=== PATIENT | male | born 1975 | race Caucasian/White ===

== ENCOUNTER 2017-03-31 16:52 | Inpatient (IN) ==
--- NOTE | 2017-03-31 18:24 | Emergency Department Note ---
Disposition Clinical Impression: Multiple sclerosis exacerbation Disposition: Admitted As Inpatient Condition: Fair Referrals: Sussy Cruz INFECTIOUS DISEASE PHYSICIAN [Primary Care Provider] - Forms: Work/School Release, ED Satisfaction Letter Time of Disposition: 20:24 Neuro HPI - General Chief Complaint: ED General Medical Stated Complaint: difficulty walking, hx MS Time Seen by Provider: 03/31/17 18:10 Source: patient Mode of arrival: ambulatory Limitations: no limitations Nursing Notes Reviewed: Yes Vital Signs Reviewed: Yes - History of Present Illness HPI Narrative: 41-year-old with history of MS who is not taking his medications because he cannot afford them comes in with a one-week history of difficulty walking he has incoordination of his lower extremities is using a cane at this point in time. States symptoms gotten progressively worse. Symptom Onset Unknown: No Timing confirmed by: other Location: left leg, right leg, ataxia Severity: moderate Quality: weakness, other (Incoordinated lower extremity movement) Symptoms Improving: No Improves with: none Worsens with: none Context: gradual onset On Anticoagulants: No Associated symptoms: Reports: denies other symptoms - Related Data Home Medications: Home Medications Medication Instructions Recorded Confirmed Cyanocobalamin (Vitamin B-12) 1,000 mcg PO DAILY 05/04/15 05/04/15 [Vitamin B12] Ibuprofen [Motrin] 400 mg PO Q6HR PRN 05/04/15 05/04/15 Krill Oil/Macon-3/Dha/Epa [Macon-3 1 each PO DAILY 05/04/15 05/04/15 Krill Oil Softgel] Previous Rx's Medication Instructions Recorded Amoxicillin/Clavulanate [Augmentin] 875 mg PO BIDWM #20 tablet 05/06/15 Hydrocodone/Acetaminophen [[place] 1 tab PO TID PRN #15 tab 05/06/15 5-325 Tablet] Allergies/Adverse Reactions: Allergies Allergy/AdvReac Type Severity Reaction Status Date / Time Anesthetics - Eunice Type- Allergy See Verified 05/04/15 10:24 Parabens Comments [Anesthetics - Eunice Type] IVP Dye Allergy Anaphylaxis Uncoded 05/04/15 10:23 All systems ED: reviewed and negative except as stated. Constitutional: Denies: fever, chills, weakness, weight change Eyes: Denies: eye pain, eye discharge, vision change ENT ED: Denies: ear pain, throat pain, dental pain, hearing loss, epistaxis, congestion, dysphagia Cardiovascular: Denies: chest pain, palpitations, dyspnea on exertion, edema, syncope Respiratory: Denies: cough, dyspnea, wheezes, hemoptysis, stridor Gastrointestinal: Denies: abdominal pain, nausea, vomiting, diarrhea, constipation, hematemesis, melena, hematochezia Genitourinary: Denies: urgency, dysuria, frequency, hematuria Musculoskeletal: Denies: back pain, neck pain, arthralgia, myalgia Integumentary: Denies: rash, abrasion, lesions Neurological: Reports: weakness, abnormal gait. Denies: headache, numbness, paresthesias, confusion, vertigo Psychiatric: Denies: anxiety, depression, suicidal thoughts, homicidal thoughts , auditory hallucinations, visual hallucinations Endocrine: Denies: fatigue Hematological/Lymphatic: Denies: easy bleeding, easy bruising Allergic/Immunologic: Denies: facial swelling, urticaria Past Medical History - Past Medical History Medical history: Reports: hyperlipidemia, other Surgical history: Reports: other (wisdom teeth) Psychiatric history: Reports: no psych history - Social History Smoking Status: Never smoker Smokeless Tobacco Status: No Alcohol use: Reports: occasionally Drug use: Reports: none Physical Exam - General Limitations: no limitations General appearance: alert, in no apparent distress - Head Head exam: atraumatic, normocephalic, normal inspection - Eye Eye exam: Present: normal appearance, PERRL, EOMI - ENT ENT exam: normal exam, normal oropharynx, mucous membranes moist - Neck Neck exam: Present: normal inspection, full ROM, trachea midline - Chest Chest inspection: Present: normal inspection, symmetric chest wall rise - Respiratory Respiratory exam: Present: normal lung sounds bilaterally - Cardiovascular Cardiovascular exam: Present: regular rate, normal rhythm, normal heart sounds - Abdominal Exam Abdominal exam: Present: soft, Non-Tender. Absent: tenderness, distention, guarding, rebound, rigidity - Extremities Exam Extremities exam: Present: normal inspection, full ROM. Absent: tenderness, pedal edema - Expanded Lower Extremity Exam Neurovascular/Tendon exam: Absent: motor deficit, sensory deficit, tendon deficit Gait: other - Back Exam Back exam: Present: normal inspection - Neurological Exam Neurological exam: Present: alert, other (Some weakness of the lower extremities ) - Psychiatric Psychiatric exam: Present: normal affect, normal mood - Skin Skin exam: Present: warm, dry, intact, normal color Course - Consultations Consultation #1: Discussed with Dr. Vergara neurology who would like the patient to receive 1 g of Solu-Medrol now admitted to the hospitalist. Time: 20:23 Vital Signs Temperature 98.3 F 03/31/17 16:53 Pulse Rate 80 03/31/17 16:53 Respiratory Rate 16 03/31/17 16:53 Blood Pressure 119/82 03/31/17 16:53 O2 Sat by Pulse Oximetry 97 03/31/17 16:53 Temperature 98.3 F 03/31/17 16:53 Pulse Rate 80 03/31/17 16:53 Respiratory Rate 16 03/31/17 16:53 Blood Pressure 119/82 03/31/17 16:53 O2 Sat by Pulse Oximetry 97 03/31/17 16:53 Oxygen Delivery Oxygen Delivery Room Air Neuro Symptoms/Deficit - Lab Data Result diagrams: 03/31/17 18:37 03/31/17 18:37 Lab Results 03/31/17 03/31/17 03/31/17 Range/Units 18:37 18:37 18:37 WBC 9.5 (4.3-11.1) K/mcL RBC 5.08 (4.19-5.50) M/mcL Hgb 14.6 (12.9-16.9) g/dL Hct 43.6 (37.5-50.1) % MCV 85.8 (83.0-100.0) fL MCH 28.7 (28.0-33.3) pg MCHC 33.5 (31.6-35.5) g/dL RDW 13.1 (11.5-14.5) % Plt Count 271 (140-400) K/mcL MPV 10.5 (9.4-12.4) fL Immature Gran % 0.4 (0-4) % Seg Neutrophils % 71.6 % Lymphocytes % 19.7 % Monocytes % 5.5 % Eosinophils % 2.4 % Basophils % 0.4 % Neutrophils # 6.8 (1.6-8.9) K/mcL Lymphocytes # 1.9 (0.6-4.6) K/mcL Monocytes # 0.5 (0.0-1.3) K/mcL Eosinophils # 0.2 (0.0-0.6) K/mcL Basophils # 0.0 (0.0-0.2) K/mcL PT 11.5 (9.4-12.1) Seconds INR 1.1 APTT 27.7 (26.0-36.0) Seconds Sodium 139 (136-145) mEq/L Potassium 3.8 (3.5-4.5) mEq/L Chloride 106 (98-109) mEq/L Carbon Dioxide 27 (19-29) mEq/L BUN 18 (8-26) mg/dL Creatinine 1.07 (0.72-1.25) mg/dL Est GFR ( Amer) > 60 (> 60) Est GFR (Non-Af Amer) > 60 (> 60) BUN/Creatinine Ratio 17 (6-26) Glucose 99 (70-99) mg/dL Calculated Osmolality 290 (280-300) Calcium 9.5 (8.6-10.8) mg/dL Troponin I (0-0.03) ng/mL 03/31/17 Range/Units 18:37 WBC (4.3-11.1) K/mcL RBC (4.19-5.50) M/mcL Hgb (12.9-16.9) g/dL Hct (37.5-50.1) % MCV (83.0-100.0) fL MCH (28.0-33.3) pg MCHC (31.6-35.5) g/dL RDW (11.5-14.5) % Plt Count (140-400) K/mcL MPV (9.4-12.4) fL Immature Gran % (0-4) % Seg Neutrophils % % Lymphocytes % % Monocytes % % Eosinophils % % Basophils % % Neutrophils # (1.6-8.9) K/mcL Lymphocytes # (0.6-4.6) K/mcL Monocytes # (0.0-1.3) K/mcL Eosinophils # (0.0-0.6) K/mcL Basophils # (0.0-0.2) K/mcL PT (9.4-12.1) Seconds INR APTT (26.0-36.0) Seconds Sodium (136-145) mEq/L Potassium (3.5-4.5) mEq/L Chloride (98-109) mEq/L Carbon Dioxide (19-29) mEq/L BUN (8-26) mg/dL Creatinine (0.72-1.25) mg/dL Est GFR ( Amer) (> 60) Est GFR (Non-Af Amer) (> 60) BUN/Creatinine Ratio (6-26) Glucose (70-99) mg/dL Calculated Osmolality (280-300) Calcium (8.6-10.8) mg/dL Troponin I 0.00 (0-0.03) ng/mL TPA Checklist - LKW: 3-4.5 hrs Add. Warnings/Precautions Patient/family understanding: The patient/family members have been counseled and understood the risk, benefit , and alternatives of treatment. Isabela - Isabela Background: Presenting Complaint (Patient with significant increase in coordination is lower extremities with difficulty walking has a history of MS) Assessment: Exam Concerns (Has weakness of the lower extremities and increase in coordination of the lower extremities concerning for MS exacerbation) Recommendation: Recommendation based on pending studies, treatments, or consults S.Pedrito Report Given to: Dr. Eduarda Mar Repor Time: 20:13 (MRI pending)
[2017-03-31 19:03] LABS: Basophils % 0.4 %; Eosinophils # 0.2 K/mcL (0.0-0.6); Eosinophils % 2.4 %; Hematocrit 43.6 % (37.5-50.1); Hemoglobin 14.6 g/dL (12.9-16.9); INR 1.1; Immature Granulocytes % 0.4 % (0-4); Lymphocytes # 1.9 K/mcL (0.6-4.6); Lymphocytes % 19.7 %; Mean Corpuscular HGB Conc 33.5 g/dL (31.6-35.5); Mean Corpuscular Hemoglobin 28.7 pg (28.0-33.3); Mean Corpuscular Volume 85.8 fL (83.0-100.0); Mean Platelet Volume 10.5 fL (9.4-12.4); Monocytes # 0.5 K/mcL (0.0-1.3); Monocytes % 5.5 %; Neutrophils # 6.8 K/mcL (1.6-8.9); Platelet Count 271 K/mcL (140-400); Prothrombin Time 11.5 Seconds (9.4-12.1); Red Blood Count 5.08 M/mcL (4.19-5.50); Red Cell Distribution Width 13.1 % (11.5-14.5); Segmented Neutrophils % 71.6 %
[2017-03-31 19:06] LABS: Activated Partial Thrombo Time 27.7 Seconds (26.0-36.0)
[2017-03-31 19:09] LABS: BUN/Creatinine Ratio 17 (6-26); Blood Urea Nitrogen 18 mg/dL (8-26); Calcium 9.5 mg/dL (8.6-10.8); Carbon Dioxide 27 mEq/L (19-29); Chloride 106 mEq/L (98-109); Glucose 99 mg/dL (70-99); Osmolality,Calculated 290 (280-300); Potassium 3.8 mEq/L (3.5-4.5); Sodium 139 mEq/L (136-145); eGFR For African Americans > 60 (> 60); eGFR For Non-African Americans > 60 (> 60)
[2017-03-31 21:41] LABS: Bilirubin,Urine Negative (Negative); Blood,Urine Negative (Negative); Clarity,Urine Clear (Clear); Color,Urine Yellow (Yellow); Glucose,Urine (UA) Normal (Normal); Ketones,Urine Negative (Negative); Leukocyte Esterase,Urine Negative (Negative); Nitrite,Urine Negative (Negative); Protein,Urine Negative (Neg-Trace); Specific Gravity,Urine 1.028 (1.010-1.025); Urobilinogen,Urine Normal (Normal)
[2017-03-31] MEDS ORDERED: methylPREDNISolone 125 MG/2 ML VIAL IVP ONE (21:46)
--- NOTE | 2017-04-01 00:19 | Emergency Department Note ---
Disposition Clinical Impression: Multiple sclerosis exacerbation Disposition: Admitted As Inpatient Condition: Fair General Adult HPI - General Chief complaint: ED General Medical Stated complaint: difficulty walking, hx MS Time Seen by Provider: 03/31/17 18:10 Source: patient Mode of arrival: ambulatory Limitations: no limitations Nursing Notes Reviewed: Yes Vital Signs Reviewed: Yes - History of Present Illness Pain Scale: 3 - Related Data Home Medications Medication Instructions Recorded Confirmed FLUoxetine HCl [PROzac] 10 mg PO DAILY 03/31/17 03/31/17 Hydrocodone/Acetaminophen [[place] 1 tab PO Q6H PRN 03/31/17 03/31/17 5-325 Tablet] Ropinirole HCl [Requip] 2 mg PO HS 03/31/17 03/31/17 Allergies Allergy/AdvReac Type Severity Reaction Status Date / Time Anesthetics - Eunice Type- Allergy See Verified 05/04/15 10:24 Parabens Comments [Anesthetics - Euniec Type] IVP Dye Allergy Anaphylaxis Uncoded 05/04/15 10:23 Constitutional: Denies: fever, chills, weakness, weight change Eyes: Denies: eye pain, eye discharge, vision change ENT ED: Denies: ear pain, throat pain, dental pain, hearing loss, epistaxis, congestion, dysphagia Cardiovascular: Denies: chest pain, palpitations, dyspnea on exertion, edema, syncope Respiratory: Denies: cough, dyspnea, wheezes, hemoptysis, stridor Gastrointestinal: Denies: abdominal pain, nausea, vomiting, diarrhea, constipation, hematemesis, melena, hematochezia Genitourinary: Denies: urgency, dysuria, frequency, hematuria Musculoskeletal: Denies: back pain, neck pain, arthralgia, myalgia Integumentary: Denies: rash, abrasion, lesions Neurological: Reports: weakness, abnormal gait. Denies: headache, numbness, paresthesias, confusion, vertigo Psychiatric: Denies: anxiety, depression, suicidal thoughts, homicidal thoughts , auditory hallucinations, visual hallucinations Endocrine: Denies: fatigue Hematological/Lymphatic: Denies: easy bleeding, easy bruising Allergic/Immunologic: Denies: facial swelling, urticaria Past Medical History - Past Medical History Medical history: Reports: hyperlipidemia, other Surgical history: Reports: other (wisdom teeth) Psychiatric history: Reports: no psych history - Social History Smoking Status: Never smoker Smokeless Tobacco Status: No Alcohol use: Reports: occasionally Drug use: Reports: none Physical Exam - General Limitations: no limitations General appearance: alert, in no apparent distress Course Vital Signs Temperature 98.3 F 03/31/17 16:53 Pulse Rate 80 03/31/17 16:53 Respiratory Rate 16 03/31/17 16:53 Blood Pressure 119/82 03/31/17 16:53 O2 Sat by Pulse Oximetry 97 03/31/17 16:53 Temperature 98.3 F 03/31/17 16:53 Pulse Rate 80 03/31/17 16:53 Respiratory Rate 14 03/31/17 23:59 Blood Pressure 115/87 03/31/17 23:59 O2 Sat by Pulse Oximetry 97 03/31/17 16:53 Oxygen Delivery Oxygen Delivery Room Air Medical Decision Making - MDM Narrative Medical decision making narrative: Patient received in sign out at 9 PM pending MRI, x-ray of the chest, urinalysis , reevaluation and disposition. Dr. Rodriguez spoke with the neurologist who recommended 1 g of Solu-Medrol for treatment of MS flare. Patient felt comfortable with this plan. He will be admitted to the hospital for further care and evaluation of MS flare. - Lab Data Result diagrams: 03/31/17 18:37 03/31/17 18:37 Lab Results 03/31/17 03/31/17 03/31/17 Range/Units 18:37 18:37 18:37 WBC 9.5 (4.3-11.1) K/mcL RBC 5.08 (4.19-5.50) M/mcL Hgb 14.6 (12.9-16.9) g/dL Hct 43.6 (37.5-50.1) % MCV 85.8 (83.0-100.0) fL MCH 28.7 (28.0-33.3) pg MCHC 33.5 (31.6-35.5) g/dL RDW 13.1 (11.5-14.5) % Plt Count 271 (140-400) K/mcL MPV 10.5 (9.4-12.4) fL Immature Gran % 0.4 (0-4) % Seg Neutrophils % 71.6 % Lymphocytes % 19.7 % Monocytes % 5.5 % Eosinophils % 2.4 % Basophils % 0.4 % Neutrophils # 6.8 (1.6-8.9) K/mcL Lymphocytes # 1.9 (0.6-4.6) K/mcL Monocytes # 0.5 (0.0-1.3) K/mcL Eosinophils # 0.2 (0.0-0.6) K/mcL Basophils # 0.0 (0.0-0.2) K/mcL PT 11.5 (9.4-12.1) Seconds INR 1.1 APTT 27.7 (26.0-36.0) Seconds Sodium 139 (136-145) mEq/L Potassium 3.8 (3.5-4.5) mEq/L Chloride 106 (98-109) mEq/L Carbon Dioxide 27 (19-29) mEq/L BUN 18 (8-26) mg/dL Creatinine 1.07 (0.72-1.25) mg/dL Est GFR ( Amer) > 60 (> 60) Est GFR (Non-Af Amer) > 60 (> 60) BUN/Creatinine Ratio 17 (6-26) Glucose 99 (70-99) mg/dL Calculated Osmolality 290 (280-300) Calcium 9.5 (8.6-10.8) mg/dL Troponin I (0-0.03) ng/mL Urine Color (Yellow) Urine Clarity (Clear) Urine pH (5.0-8.0) pH Units Ur Specific [place] (1.010-1.025) Urine Protein (Neg-Trace) mg/dL Urine Glucose (UA) (Normal) mg/dL Urine Ketones (Negative) mg/dL Urine Blood (Negative) Urine Nitrite (Negative) Urine Bilirubin (Negative) Urine Urobilinogen (Normal) mg/dL Ur Leukocyte Esterase (Negative) Ur Culture Indicated? (NO) 03/31/17 03/31/17 Range/Units 18:37 21:33 WBC (4.3-11.1) K/mcL RBC (4.19-5.50) M/mcL Hgb (12.9-16.9) g/dL Hct (37.5-50.1) % MCV (83.0-100.0) fL MCH (28.0-33.3) pg MCHC (31.6-35.5) g/dL RDW (11.5-14.5) % Plt Count (140-400) K/mcL MPV (9.4-12.4) fL Immature Gran % (0-4) % Seg Neutrophils % % Lymphocytes % % Monocytes % % Eosinophils % % Basophils % % Neutrophils # (1.6-8.9) K/mcL Lymphocytes # (0.6-4.6) K/mcL Monocytes # (0.0-1.3) K/mcL Eosinophils # (0.0-0.6) K/mcL Basophils # (0.0-0.2) K/mcL PT (9.4-12.1) Seconds INR APTT (26.0-36.0) Seconds Sodium (136-145) mEq/L Potassium (3.5-4.5) mEq/L Chloride (98-109) mEq/L Carbon Dioxide (19-29) mEq/L BUN (8-26) mg/dL Creatinine (0.72-1.25) mg/dL Est GFR ( Amer) (> 60) Est GFR (Non-Af Amer) (> 60) BUN/Creatinine Ratio (6-26) Glucose (70-99) mg/dL Calculated Osmolality (280-300) Calcium (8.6-10.8) mg/dL Troponin I 0.00 (0-0.03) ng/mL Urine Color Yellow (Yellow) Urine Clarity Clear (Clear) Urine pH 6.0 (5.0-8.0) pH Units Ur Specific [place] 1.028 H (1.010-1.025) Urine Protein Negative (Neg-Trace) mg/dL Urine Glucose (UA) Normal (Normal) mg/dL Urine Ketones Negative (Negative) mg/dL Urine Blood Negative (Negative) Urine Nitrite Negative (Negative) Urine Bilirubin Negative (Negative) Urine Urobilinogen Normal (Normal) mg/dL Ur Leukocyte Esterase Negative (Negative) Ur Culture Indicated? NO (NO)
[2017-04-01] MEDS ORDERED: Acetaminophen 325 MG TABLET PO PRN (01:38)
--- NOTE | 2017-04-01 01:49 | Internal Med History&Physical ---
Date of Encounter: 04/01/17 Time of Encounter: 01:48 Assessment and Plan (1) Exacerbation of multiple sclerosis Current visit: Yes Status: Suspected patient with a hx of MS now comes in with worsening neurological symptoms, diagnostic imaging concerning for signal enhancement for a flare, neuropsychology medical consultant neurologist was consulted in the ER who recommended 1,000mg stat of solumedrol, will get them to weigh in, will continue high dose steroid for 3 days total pending neurology review (2) Restless leg syndrome Current visit: Yes Status: Chronic will continue home medication (3) Depression Current visit: Yes Status: Chronic will continue home medication Qualifiers: Depression Type: major depressive disorder Major depression recurrence: recurrent Active/Remission status: in full remission Qualified Code(s): F33.42 - Major depressive disorder, recurrent, in full remission Internal Medicine - H&P: HPI Chief complaint: difficulty walking Admitted From: Emergency Dept Plans for Post Hospital Care: Home History of present illness: Mr. Mina is a 41 year old male with a history of multiple sclerosis diagnosis since 2009/restless leg syndrome who presented to the ER with ambulatory difficulty. He reports that for the past couple of days he had had difficulty walking, he self describes it a "wobbly" and has had to use a cane more frequently. He denies any recent illness or change in medications. No new focal deficits, falls, tingling or numbness. His symptoms has been progressively worsening so he came to the ER for further evaluation. In the ER he had C-spine MRI and Brain MRI but was reported as "slight interval increase in the multifocal high signal in the spinal cord" and "slightly increased number of white matter lesions" compared to the prior exam in 04/2015 respectively. The on- call neurologist was consulted who recommended high dose steroids and admission for further management. Past Med Surg Social Fam HX - Past Medical History Source: patient, old records reviewed Medical history: hyperlipidemia, other (RLS, MS) Psychiatric history: depression - Past Surgical History Surgical History: other ([place] teeth extraction) - Social History Smoking Status: Never smoker Smokeless Tobacco Status: No Alcohol use: occasionally Drug use: none - Family History Mother Living Status: Cause of : breast ca. Hx Family Cancer: Yes (breast cancer) Internal Medicine - H&P: Meds FLUoxetine HCl [PROzac] 10 mg PO DAILY 03/31/17 [History] Hydrocodone/Acetaminophen [[place] 5-325 Tablet] 1 tab PO Q6H PRN 03/31/17 [ History] Ropinirole HCl [Requip] 2 mg PO HS 03/31/17 [History] Allergies Anesthetics - Eunice Type- Parabens [Anesthetics - Eunice Type] Allergy (Verified 05/04/15 10:24) See Comments Heart rate dropped IVP Dye Allergy (Uncoded 05/04/15 10:23) Anaphylaxis Hives All Systems PM: A 10-system review of systems was performed and is negative for pertinent findings except as documented above in the HPI. - Constitutional Vitals: Temp Pulse Resp BP Pulse Ox 98.1 F 51 17 130/90 94 04/01/17 00:49 04/01/17 00:49 04/01/17 00:49 04/01/17 00:49 04/01/17 00:49 GENERAL: Adult male, lying in bed, Alert, not in acute distress, seems to have lapses in memory HEENT: NC/AT, EOMI, PERRLA, anicteric sclera, normal conjunctiva, supple, clear nares, moist mucous membranes, RESP: Lungs are clear to auscultation bilaterally, good AE bilaterally, No crackles or wheeze CARDIO: Normal hearts sounds; S1 and 2, RRR with no murmurs, no JVD, no ankle edema GI: Obese abdomen, Soft, full, no tenderness, no organomegaly felt, normal bowel sounds heard MUSCULOSKELETAL: grossly normal movements bilaterally, no deformities noted, no calf tenderness NEUROLOGIC: CN 2-12 intact grossly. No gross motor/sensory deficit appreciated, PSYCHIATRY: AAO x 3. Mood is fair, SKIN: no skin rash or ulcers noted Internal Med - H&P Results - Labs CBC & Chem 7: 03/31/17 18:37 04/01/17 02:22 - Diagnostic Studies MRI - head Status: image reviewed by me
[2017-04-01] MEDS ORDERED: Naloxone 0.4 MG/ML INJ IVP PRN (01:57)
[2017-04-01] MEDS: *HR* HYDROcodone/Acet 5/325 mg TABLET PO PRN ×4 (02:08→23:29)
[2017-04-01] MEDS: rOPINIRole 1 MG TABLET PO SCH ×2 (02:08→21:01)
[2017-04-01 03:29] LABS: BUN/Creatinine Ratio 19 (6-26); Blood Urea Nitrogen 17 mg/dL (8-26); Calcium 9.7 mg/dL (8.6-10.8); Carbon Dioxide 18 mEq/L (19-29); Glucose 131 mg/dL (70-99); Magnesium 2.1 mg/dL (1.6-2.6); Phosphorous 1.9 mg/dL (2.3-4.7); eGFR For African Americans > 60 (> 60); eGFR For Non-African Americans > 60 (> 60)
[2017-04-01 03:36] LABS: Chloride 108 mEq/L (98-109); Osmolality,Calculated 289 (280-300); Sodium 138 mEq/L (136-145)
[2017-04-01 03:40] LABS: Potassium 4.6 mEq/L (3.5-4.5)
--- NOTE | 2017-04-01 09:51 | Neurology - Consult Note ---
Date of Encounter: 04/01/17 Time of Encounter: 09:45 Assessment and Plan (1) Multiple sclerosis exacerbation Current Visit: Yes Status: Acute 41-year old man with multiple sclerosis exacerbation, based on clinical and imaging findings, although contrast studies were not done. Has difficulties with being on medications due to affordability. IV prednisone/solumedrol, 1g daily x 3 or 5 days, depending on improvement. Ca, Vit D, PPI prophylaxis during steroid treatment. Outpatient follow-up with Dr. Cabrera in 1 week. History of Present Illness Chief complaint: Incoordination while walking HPI: Mr. Mina is a 41 year old male with prior diagnosis of Multiple Sclerosis ( diagnosed in 2004), tried on several medications, (none of which really worked and/or that he could not afford the medication) who started having difficulties with walking in the last few days. He did not have any infections during this time. He was in his usual state of health and was working in the last few days. But yesterday, the incoordination was so much that he decided to come to the hospital. no bowel/bladder issues. He has anaphylactic reaction to contrast dyes, and so MRI was not done with contrast, which showed new lesions in the brain and cervical spine. No other change in medications. No falls. No difficulty eating or swallowing or with speech. He states that he has no specific weakness, but has difficulty coordinating the movements. He is being followed by Dr. Cabrera in the outpatient setting. Last time when he had worsening of his function, he was given IV steroids for three days and was sent home with improvement. Past Med Surg Social Fam HX - Past Medical History Medical history: hyperlipidemia, other (RLS, MS) Psychiatric history: depression - Past Surgical History Surgical History: other ([place] teeth extraction) - Social History Smoking Status: Never smoker Smokeless Tobacco Status: No Alcohol use: occasionally Drug use: none - Family History Mother Living Status: Cause of : breast ca. Hx Family Cancer: Yes (breast cancer) Medications and Allergies FLUoxetine HCl [PROzac] 10 mg PO DAILY 03/31/17 [History] Hydrocodone/Acetaminophen [[place] 5-325 Tablet] 1 tab PO Q6H PRN 03/31/17 [ History] Ropinirole HCl [Requip] 2 mg PO HS 03/31/17 [History] Allergies Anesthetics - Eunice Type- Parabens [Anesthetics - Eunice Type] Allergy (Verified 05/04/15 10:24) See Comments Heart rate dropped IVP Dye Allergy (Uncoded 05/04/15 10:23) Anaphylaxis Hives All Systems: A 10-system review of systems was performed and is negative for pertinent findings except as documented above in the HPI. - Constitutional Constitutional ROS IM: as per HPI - Nose, Mouth, Throat Nose, mouth and throat: as per HPI - Cardiovascular Cardiovascular ROS IM: as per HPI - Respiratory Respiratory IM: as per HPI - Gastrointestinal Gastrointestinal: as per HPI - Genitourinary Genitourinary ROS: as per HPI - Musculoskeletal Musculoskeletal ROS IM: as per HPI - Integumentary Integumentary IM: as per HPI - Neurological Neurological ROS: as per HPI - Psychiatric Psychiatric general PM: as per HPI - Endocrine Endocrine IM: as per HPI - Hematologic/Lymphatic Hematologic/Lymphatic pediatric: as per HPI - Allergic/Immunologic Allergic/Immunologic ROS PM: as per HPI Physical Examination - Vital Signs Vital Signs: Initial Vital Signs Temp Pulse Resp BP Pulse Ox 98.3 F 80 16 119/82 97 03/31/17 16:53 03/31/17 16:53 03/31/17 16:53 03/31/17 16:53 03/31/17 16:53 Vital Signs - 24 hr 03/31/17 16:53 03/31/17 23:59 04/01/17 00:49 Temperature 98.3 F 98.1 F Pulse Rate 80 51 Respiratory Rate 16 14 17 Blood Pressure 119/82 115/87 130/90 O2 Sat by Pulse Oximetry 97 94 04/01/17 04:15 04/01/17 06:55 Temperature 98.0 F 98 F Pulse Rate 50 56 Respiratory Rate 16 18 Blood Pressure 131/88 127/86 O2 Sat by Pulse Oximetry 95 96 - Constitutional General appearance: comfortable - Neurologic Sensorimotor examination: intact Detailed motor examination: full strength in all major muscle groups Motor examination - right side: 01/13: deltoids, biceps, triceps, wrist flexion, wrist extension, wheel alignment mechanic, hip flexors, tibialis Anterior, quadriceps, toe extension (EHL), plantarflexion Motor examination - left side: 01/13: deltoids, biceps, triceps, wrist flexion, wrist extension, hip flexors, wheel alignment mechanic, quadriceps, tibialis Anterior, toe extension (EHL), plantarflexion Detailed sensory examination: intact Reflexes: Biceps: 3+, Triceps: 3+, Brachioradialis: 3+, Patella: 3+, Achilles: 3 + (Positive Babinski bilaterally) Mental Status Examination: awake, alert, oriented to person, oriented to place, oriented to time, follows commands appropriately, answers questions appropriately, no agnosia, no aphasia, no aproxia, lucid Cranial nerve examination: PERRL, EOMI, visual rosas intact, corneal reflexes brisk symmetrically, sensory to face intact, mastication intact, no facial asymmetry is present, no dysarthria, hearing is intact symmetrically, soft palate elevates bilaterally upon phonation, gag reflex intact, flexes SCM and trapezius muscles symmetrically with full power, tongue protrudes midline, no atrophy or facial fasiculations present Cerebellar examination: no gait ataxia (Has gait ataxia and [id number] ataxia.) Results - Laboratory Findings CBC and BMP: 03/31/17 18:37 04/01/17 02:22 Abnormal lab findings: Abnormal lab results Potassium 4.6 mEq/L (3.5-4.5) H 04/01/17 02:22 Carbon Dioxide 18 mEq/L (19-29) L 04/01/17 02:22 Glucose 131 mg/dL (70-99) H 04/01/17 02:22 Phosphorus 1.9 mg/dL (2.3-4.7) L 04/01/17 02:22 Ur Specific Ferguson 1.028 (1.010-1.025) H 03/31/17 21:33 Lab Results 03/31/17 03/31/17 03/31/17 Range/Units 18:37 18:37 18:37 WBC 9.5 (4.3-11.1) K/mcL RBC 5.08 (4.19-5.50) M/mcL Hgb 14.6 (12.9-16.9) g/dL Hct 43.6 (37.5-50.1) % MCV 85.8 (83.0-100.0) fL MCH 28.7 (28.0-33.3) pg MCHC 33.5 (31.6-35.5) g/dL RDW 13.1 (11.5-14.5) % Plt Count 271 (140-400) K/mcL MPV 10.5 (9.4-12.4) fL Immature Gran % 0.4 (0-4) % Seg Neutrophils % 71.6 % Lymphocytes % 19.7 % Monocytes % 5.5 % Eosinophils % 2.4 % Basophils % 0.4 % Neutrophils # 6.8 (1.6-8.9) K/mcL Lymphocytes # 1.9 (0.6-4.6) K/mcL Monocytes # 0.5 (0.0-1.3) K/mcL Eosinophils # 0.2 (0.0-0.6) K/mcL Basophils # 0.0 (0.0-0.2) K/mcL PT 11.5 (9.4-12.1) Seconds INR 1.1 APTT 27.7 (26.0-36.0) Seconds Sodium 139 (136-145) mEq/L Potassium 3.8 (3.5-4.5) mEq/L Chloride 106 (98-109) mEq/L Carbon Dioxide 27 (19-29) mEq/L BUN 18 (8-26) mg/dL Creatinine 1.07 (0.72-1.25) mg/dL Est GFR ( Amer) > 60 (> 60) Est GFR (Non-Af Amer) > 60 (> 60) BUN/Creatinine Ratio 17 (6-26) Glucose 99 (70-99) mg/dL Calculated Osmolality 290 (280-300) Calcium 9.5 (8.6-10.8) mg/dL Phosphorus (2.3-4.7) mg/dL Magnesium (1.6-2.6) mg/dL Troponin I (0-0.03) ng/mL Urine Color (Yellow) Urine Clarity (Clear) Urine pH (5.0-8.0) pH Units Ur Specific Ferguson (1.010-1.025) Urine Protein (Neg-Trace) mg/dL Urine Glucose (UA) (Normal) mg/dL Urine Ketones (Negative) mg/dL Urine Blood (Negative) Urine Nitrite (Negative) Urine Bilirubin (Negative) Urine Urobilinogen (Normal) mg/dL Ur Leukocyte Esterase (Negative) Ur Culture Indicated? (NO) 03/31/17 03/31/17 04/01/17 Range/Units 18:37 21:33 02:22 WBC (4.3-11.1) K/mcL RBC (4.19-5.50) M/mcL Hgb (12.9-16.9) g/dL Hct (37.5-50.1) % MCV (83.0-100.0) fL MCH (28.0-33.3) pg MCHC (31.6-35.5) g/dL RDW (11.5-14.5) % Plt Count (140-400) K/mcL MPV (9.4-12.4) fL Immature Gran % (0-4) % Seg Neutrophils % % Lymphocytes % % Monocytes % % Eosinophils % % Basophils % % Neutrophils # (1.6-8.9) K/mcL Lymphocytes # (0.6-4.6) K/mcL Monocytes # (0.0-1.3) K/mcL Eosinophils # (0.0-0.6) K/mcL Basophils # (0.0-0.2) K/mcL PT (9.4-12.1) Seconds INR APTT (26.0-36.0) Seconds Sodium 138 (136-145) mEq/L Potassium 4.6 H (3.5-4.5) mEq/L Chloride 108 (98-109) mEq/L Carbon Dioxide 18 L (19-29) mEq/L BUN 17 (8-26) mg/dL Creatinine 0.90 (0.72-1.25) mg/dL Est GFR ( Amer) > 60 (> 60) Est GFR (Non-Af Amer) > 60 (> 60) BUN/Creatinine Ratio 19 (6-26) Glucose 131 H (70-99) mg/dL Calculated Osmolality 289 (280-300) Calcium 9.7 (8.6-10.8) mg/dL Phosphorus 1.9 L (2.3-4.7) mg/dL Magnesium 2.1 (1.6-2.6) mg/dL Troponin I 0.00 (0-0.03) ng/mL Urine Color Yellow (Yellow) Urine Clarity Clear (Clear) Urine pH 6.0 (5.0-8.0) pH Units Ur Specific Ferguson 1.028 H (1.010-1.025) Urine Protein Negative (Neg-Trace) mg/dL Urine Glucose (UA) Normal (Normal) mg/dL Urine Ketones Negative (Negative) mg/dL Urine Blood Negative (Negative) Urine Nitrite Negative (Negative) Urine Bilirubin Negative (Negative) Urine Urobilinogen Normal (Normal) mg/dL Ur Leukocyte Esterase Negative (Negative) Ur Culture Indicated? NO (NO) - Diagnostic Findings Additional findings: Brain MRI 03/31/17 18:20 IMPRESSION: Slightly increased number of white matter lesions compared to the previous exam obtained on 05/04/2015. Lack of contrast precludes evaluation for areas of active demyelination. D/ / Dami Mayen MD / Dami Mayen MD Interpreting Provider: Dami Mayen MD Cervical Spine MRI 03/31/17 18:20 IMPRESSION: Stable slight interval increase in the multifocal high signal in the cord. Patient has a history of multiple sclerosis Multilevel degenerative disc disease not grossly changed D/ / Malachi Mcneil / Malachi Mcneil Interpreting Provider: Malachi Mcneil Chest X-Ray 03/31/17 20:22 IMPRESSION: No acute cardiopulmonary abnormality D/ / Malachi Mcneil / Malachi Mcneil Interpreting Provider: Malachi Mcneil Consult Discharge Plan - Plan Referrals: Sussy Cruz, RN [facility] [Primary Care Provider] -
[2017-04-01] MEDS: FLUoxetine HCl 10 MG CAPSULE PO SCH (10:33)
[2017-04-01] MEDS: *HR* Heparin 5,000 UNIT/ML VIAL SQ SCH ×3 (10:34→23:28)
[2017-04-01] MEDS: methylPREDNISolone 1,000 MG in 0.9 % Sodium Chloride 50 ML IVPB SCH (16:54)
--- NOTE | 2017-04-01 17:31 | Event Note ---
Date of Encounter: 04/01/17 Time of Encounter: 17:30 41/m Admitted with exacerbation of multiple sclerosis. Patient is evaluated by neurology. I recommended pulse steroid Solu-Medrol intravenous therapy. Plan: Will follow the recommendations from neurology.
[2017-04-02] MEDS: *HR* Heparin 5,000 UNIT/ML VIAL SQ SCH ×3 (05:12→21:51)
[2017-04-02] MEDS ORDERED: GI Cocktail 40 ML EACH PO ONE (05:31)
[2017-04-02] MEDS: FLUoxetine HCl 10 MG CAPSULE PO SCH (09:07)
[2017-04-02] MEDS: *HR* HYDROcodone/Acet 5/325 mg TABLET PO PRN ×3 (09:08→23:02)
[2017-04-02] MEDS: methylPREDNISolone 1,000 MG in 0.9 % Sodium Chloride 50 ML IVPB SCH (16:54)
--- NOTE | 2017-04-02 17:50 | Internal Med Progress Note ---
Date of Encounter: 04/02/17 Time of Encounter: 17:48 - Assessment and plan (1) Exacerbation of multiple sclerosis Current Visit: Yes Status: Suspected Assessment and plan: Known to have multiple sclerosis. Diagnosed in 2009. Admitted with ambulatory difficulty along with difficulty in walking. MRI/clinical correlation suggestive of exacerbation of multiple sclerosis. Evaluated by a neurologist. Plan: Will follow recommendations from neurology. We will control blood sugar with subcutaneous insulin (2) Restless leg syndrome Current Visit: Yes Status: Chronic Assessment and plan: Continue home medication (3) Depression Current Visit: Yes Status: Chronic Assessment and plan: Presently stable We will continue her medical Qualifiers: Depression Type: major depressive disorder Major depression recurrence: recurrent Active/Remission status: in full remission Qualified Code(s): F33.42 - Major depressive disorder, recurrent, in full remission - Subjective Interval history: Seen and examined. Chart reviewed. Patient is comfortably lying in a bed. Patient denies any numbness, weakness, chest pain, shortness of breath, abdominal pain, diarrhea or vomiting - Constitutional Vitals: Temp Pulse Resp BP Pulse Ox 98.2 F 73 18 114/69 96 04/02/17 16:06 04/02/17 16:06 04/02/17 16:06 04/02/17 16:06 04/02/17 16:06 General appearance: Present: A&O X 3, pleasant, no acute distress, answers questions appropriately - Head Head exam: Present: atraumatic, normocephalic - Eye Eye exam: Present: PERRL, conjuntiva pink, sclera anicteric Pupils: Present: PERRL - Neck Neck exam general surgery: Present: supple, trachea midline. Absent: lymphadenopathy - Respiratory Respiratory exam: Present: CTAB. Absent: accessory muscle use, rales, rhonchi, wheezes - Cardiovascular Cardiovascular exam: Present: RRR, +S1, +S2. Absent: diastolic murmur, gallop, rubs, systolic murmur - GI/Abdominal GI/Abdominal exam: Present: normal bowel sounds, soft, no peritoneal signs. Absent: distended, tenderness - Extremities Exam Extremities exam: Present: warm, radial pulses palpable and symetrical. Absent : calf tenderness, cyanotic, pedal edema - Neurological Exam Neurological exam: Present: CN II-XII intact, oriented X3, no focal deficits. Absent: pronater drift, facial droop, speech deficit - Skin Skin exam: Present: dry, intact Internal Medicine: Result - Labs CBC & Chem 7: 03/31/17 18:37 04/01/17 02:22 - ABG Interpretation ABG results: PT/INR, D-dimer PT 11.5 Seconds (9.4-12.1) 03/31/17 18:37 Consult Discharge Plan - Plan Referrals: Sussy Cruz, [facility] [Primary Care Provider] -
[2017-04-02] MEDS ORDERED: Dextrose Gel 15 GM PO PRN ×2 (17:53)
[2017-04-02] MEDS ORDERED: D5% in Water 1,000 ML IVC PRN (17:53)
[2017-04-02] MEDS ORDERED: *HR* Dextrose 50 % in Water (Syg) 50 ML SYRINGE IVP PRN (17:53)
[2017-04-02] MEDS: rOPINIRole 1 MG TABLET PO SCH (21:51)
[2017-04-03] MEDS: *HR* Heparin 5,000 UNIT/ML VIAL SQ SCH ×3 (05:34→21:19)
[2017-04-03] MEDS: *HR* HYDROcodone/Acet 5/325 mg TABLET PO PRN ×3 (05:55→21:19)
[2017-04-03] MEDS: FLUoxetine HCl 10 MG CAPSULE PO SCH (07:41)
[2017-04-03] MEDS: Insulin LISPRO 300 UNITS/3 ML VIAL SQ SCH ×3 (07:41→16:32)
[2017-04-03] MEDS: methylPREDNISolone 1,000 MG in 0.9 % Sodium Chloride 50 ML IVPB SCH (15:41)
--- NOTE | 2017-04-03 16:58 | Internal Med Progress Note ---
<Lamar Alamo - Last Filed: 04/03/17 17:07> Date of Encounter: 04/03/17 Time of Encounter: 09:15 - Assessment and plan (1) Exacerbation of multiple sclerosis Current Visit: Yes Status: Suspected Assessment and plan: multiple sclerosis- Diagnosed in 2009. Admitted with ambulatory difficulty along with difficulty in walking. Patient stated that he has increase strength but not yet at baseline MRI brain- increase in # of white matter brain lesion. suggestive of exacerbation of multiple sclerosis. Cervical spine MRI- stable from previous neurologist on board Plan: Following recommendations from neurology. Solumedrol day 5 d/c tomorrow Control blood sugar with subcutaneous insulin he is to go to SNF rehabilitation (2) Restless leg syndrome Current Visit: Yes Status: Chronic Assessment and plan: Continue home medication stable (3) Depression Current Visit: Yes Status: Chronic Assessment and plan: Stable continue home medication Qualifiers: Depression Type: major depressive disorder Major depression recurrence: recurrent Active/Remission status: in full remission Qualified Code(s): F33.42 - Major depressive disorder, recurrent, in full remission - Subjective Interval history: sitting up in a chair comfortably he has no complaints today he reports increase in strength from admossion but it is not at baseline he denies chest pain, dyspnea, nausea, vomting, abdominal pain, difficulty talking, confusion - Constitutional Vitals: Temp Pulse Resp BP Pulse Ox 97.6 F 64 16 129/76 95 04/03/17 15:43 04/03/17 15:43 04/03/17 15:43 04/03/17 15:43 04/03/17 15:43 General appearance: Present: A&O X 3, pleasant, no acute distress, answers questions appropriately - Head Head exam: Present: atraumatic, normocephalic - Eye Eye exam: Present: PERRL, conjuntiva pink. Absent: sclera anicteric - Respiratory Respiratory exam: Present: CTAB. Absent: accessory muscle use, rales, respiratory distress - Cardiovascular Cardiovascular exam: Present: RRR, +S1, +S2. Absent: gallop, irregular rhythm - GI/Abdominal GI/Abdominal exam: Present: normal bowel sounds, soft. Absent: guarding - Extremities Exam Extremities exam: Present: full ROM, normal inspection. Absent: tenderness - Skin Skin exam: Present: dry, intact Internal Medicine: Result - Labs CBC & Chem 7: 07/21/17 18:37 04/01/17 02:22 - ABG Interpretation ABG results: PT/INR, D-dimer PT 11.5 Seconds (9.4-12.1) 03/31/17 18:37 Consult Discharge Plan - Plan Referrals: Sussy Cruz, [employer] [Primary Care Provider] - <Darnell Garland P - Last Filed: 04/03/17 17:57> Date of Encounter: 04/03/17 - Assessment and plan (1) Exacerbation of multiple sclerosis Current Visit: Yes Status: Suspected (2) Restless leg syndrome Current Visit: Yes Status: Chronic (3) Depression Current Visit: Yes Status: Chronic Qualifiers: Depression Type: major depressive disorder Major depression recurrence: recurrent Active/Remission status: in full remission Qualified Code(s): F33.42 - Major depressive disorder, recurrent, in full remission - Constitutional Vitals: Temp Pulse Resp BP Pulse Ox 97.6 F 64 16 129/76 95 04/03/17 15:43 04/03/17 15:43 04/03/17 15:43 04/03/17 15:43 04/03/17 15:43 Internal Medicine: Result - Labs CBC & Chem 7: 03/31/17 18:37 04/01/17 02:22 - ABG Interpretation ABG results: PT/INR, D-dimer PT 11.5 Seconds (9.4-12.1) 03/31/17 18:37 - Attending Attestation I examined this patient and my medical decision-making was reviewed with the Resident Physician. I agree with the documented findings, disposition and treatment plan as described except to the extent set forth below. home tomorrow after 5th dose of solumedrol.
[2017-04-03] MEDS: rOPINIRole 1 MG TABLET PO SCH (21:19)
[2017-04-04] MEDS ORDERED: Insulin LISPRO 300 UNITS/3 ML VIAL SQ SCH (00:15)
[2017-04-04] MEDS: *HR* Heparin 5,000 UNIT/ML VIAL SQ SCH ×2 (05:38→14:13)
[2017-04-04] MEDS: *HR* HYDROcodone/Acet 5/325 mg TABLET PO PRN ×2 (06:20→15:33)
[2017-04-04] MEDS: FLUoxetine HCl 10 MG CAPSULE PO SCH (07:51)
[2017-04-04] MEDS: Insulin LISPRO 300 UNITS/3 ML VIAL SQ SCH ×2 (07:54→11:55)
[2017-04-04 11:18] VITALS: BP 119/76
[2017-04-04] MEDS ORDERED: methylPREDNISolone 1,000 MG in 0.9 % Sodium Chloride 50 ML IVPB SCH (12:00)
--- NOTE | 2017-04-04 12:24 | Neurology Progress Note ---
Date of Encounter: 04/04/17 Time of Encounter: 12:22 Assessment and Plan (1) Exacerbation of multiple sclerosis Current Visit: Yes Status: Suspected Improving with IV steroid therapy total course 5 days and is on last dose of solumedrol IV today and after that patient is to be discharged home and he is to follow up with Dr. Hernandez 2-3 weeks after discharge. Patient is to continue his home medicine including MS disease modulating therapy. He suppose to take Tecfidera 240mg bid for MS but apparently he is not taking Tecfidera at present time. patient should be emphasized to comply with therapy. Subjective Principal diagnosis: MS exacerbation Interval history: Patient seen and examined. He is doing better in terms of his leg weakness. on last dose of IV solumedrol. Patient is able to walk now and reports mild back pain at the mid of his back. MRI of brain and cervical spine showed increasing MS plaques but no active lesion reported. noted the the MRIs were not with the use of contrast. Objective - Constitutional Vitals: Temp Pulse Resp BP Pulse Ox 98.0 F 63 16 119/76 95 04/04/17 11:00 04/04/17 11:00 04/04/17 11:00 04/04/17 11:00 04/04/17 11:00 - Neurological Exam Sensorimotor examination: Present: intact Motor Examination: Present: full strength in all major muscle groups Motor examination - right side: 5/5: deltoids, biceps, triceps, wrist flexion, wrist extension, retail salesman, hip flexors, tibialis Anterior, quadriceps, toe extension (EHL), plantarflexion Motor examination - left side: 4/5: deltoids, biceps, triceps, wrist flexion, wrist extension, 5/5: hip flexors, retail salesman, quadriceps, tibialis Anterior, toe extension (EHL), plantarflexion Sensation intact: Present: intact (Grssly intact) Posture: Present: other (NOne) Reflex and gait examination: other (Able to walk without assistance.) Reflexes: Biceps: 3+, Triceps: 3+, Brachioradialis: 3+, Patella: 3+, Achilles: 3 + Mental Status Examination: Present: awake, alert, oriented to person, oriented to place, oriented to time, follows commands appropriately, answers questions appropriately, no agnosia, no aphasia, no aproxia, lucid Cranial nerve examination: Present: PERRL, EOMI, visual rosas intact, corneal reflexes brisk symmetrically, sensory to face intact, mastication intact, no facial asymmetry is present, no dysarthria, hearing is intact symmetrically, soft palate elevates bilaterally upon phonation, gag reflex intact, flexes SCM and trapezius muscles symmetrically with full power, tongue protrudes midline, no atrophy or facial fasiculations present Cerebellar examination: Present: no gait ataxia (Has gait ataxia and finger-nose -finger ataxia.) Results - Laboratory Findings CBC and BMP: 03/31/17 18:37 04/01/17 02:22 Abnormal lab findings: Abnormal lab results Potassium 4.6 mEq/L (3.5-4.5) H 04/01/17 02:22 Carbon Dioxide 18 mEq/L (19-29) L 04/01/17 02:22 Glucose 131 mg/dL (70-99) H 04/01/17 02:22 POC Glucose 204 (58-89) H 04/04/17 11:20 Phosphorus 1.9 mg/dL (2.3-4.7) L 04/01/17 02:22 Ur Specific [place] 1.028 (1.010-1.025) H 03/31/17 21:33 Consult Discharge Plan - Plan Referrals: Sussy Cruz CNP [Primary Care Provider] - 04/10/17 1:00 pm
--- NOTE | 2017-04-04 14:01 | Discharge Summary ---
<Lamar Alamo - Last Filed: 04/04/17 13:57> Date of Encounter: 04/04/17 Time of Encounter: 10:00 - Discharge Diagnosis (1) Exacerbation of multiple sclerosis Priority: Primary Status: Suspected Comments: multiple sclerosis- Diagnosed in 2009. Patient received 4 doses of Solu-Medrol in the course of treatment Admitted with ambulatory difficulty along with difficulty in walking. Patient stated that he has increase strength but not yet at baseline MRI brain- increase in # of white matter brain lesion. suggestive of exacerbation of multiple sclerosis. Cervical spine MRI- stable from previous neurologist on board- patient will follow up with him in 2 to 3 weeks outpatient patient is to have outpatient PT patient's follow-up with primary care physician (2) Restless leg syndrome Priority: Secondary Status: Chronic Comments: Continue home medication stable (3) Depression Priority: Secondary Status: Chronic Comments: Stable continue home medication Qualifiers: Depression Type: major depressive disorder Major depression recurrence: recurrent Active/Remission status: in full remission Qualified Code(s): F33.42 - Major depressive disorder, recurrent, in full remission - Discharge Medications Prescriptions: Dimethyl Fumarate [Tecfidera] 240 mg PO BID #60 capsule.dr Dorsey Medications: FLUoxetine HCl [Prozac] 10 mg PO DAILY 03/31/17 [History] Hydrocodone/Acetaminophen [[place] 5-325 Tablet] 1 tab PO Q6H PRN 03/31/17 [ History] Ropinirole HCl [Requip] 2 mg PO HS 03/31/17 [History] Dimethyl Fumarate [Tecfidera] 240 mg PO BID #60 capsule. 04/04/17 [Rx] Allergies/Adverse Reactions: Allergies Anesthetics - Eunice Type- Parabens [Anesthetics - Eunice Type] Allergy (Verified 05/04/15 10:24) See Comments Heart rate dropped IVP Dye Allergy (Uncoded 05/04/15 10:23) Anaphylaxis Hives Date of admission: 04/03/17 13:18 Primary care physician: Sussy Cruz CNP Consults: 04/04/17 07:52 Consult to Cyber Instructor [CONS] Routine Reason for SW Consult: discharge planning Discharging clinician: Lamar Alamo - Patient Status Disposition: Home, Self-Care Condition: Good Functional capacity at discharge: independent ambulation Overall status at discharge: patient is back to baseline - Discharge Instructions Follow Up With: Baljeet Hernandez DO [Partnered Physician] - 04/27/17 7:45 am Sussy Cruz CNP [Primary Care Provider] - 04/10/17 1:00 pm Additional Instructions: The patient is to follow-up with Dr. Hrenandez of neurology in 2 to 3 weeks. He is to continue his Tecifidera and have outpatient physical therapy. He is to follow up with his primary care physician. If he should worsen he should return to the hospital. - Diet and Activity Activity: resume usual activities as tolerated Interval History: Mr. Mina is a 41 year old male with a history of multiple sclerosis diagnosis since 2009 and restless leg syndrome who presented to the ER with ambulatory difficulty. He reports that for the past couple of days he had had difficulty walking and has had to use a cane more frequently. He states that he has had difficulty affording his medications, thus had not been compliant. His symptoms has became progressively worse so he came to the ER. In the ER he had C-spine MRI and Brain MRI but was reported as "slight interval increase in the multifocal high signal in the spinal cord" and "slightly increased number of white matter lesions" compared to the prior exam in 04/2015 respectively. The neurologist was consulted who recommended high dose steroids and admission for further management for MS exacerbation. He received 4 doses of Solu-Medrol through the course of his treatment. He stated improvement of his weakness and was able to ambulate back to his baseline. He denied fever, chills, chest pain , palpitations, wheezing, dyspnea, nausea, vomiting, dizziness, abdominal pain, weakness. He is to follow up with neurology Dr. Hernandez and 2 to 3 weeks. Is to continue Tecfidera and will have PT outpatient. Follow up with his primary care physician. The patient's arrived and the plan was discussed with her. Questions were answered. The patient stated clear understanding of treatment and plan. Hospital course: Mr. Mina is a 41 year old male - Time Spent with Patient Total time spent providing and/or coordinating discharge services: - Constitutional Vitals: Temp Pulse Resp BP Pulse Ox 98.0 F 63 16 119/76 95 04/04/17 11:00 04/04/17 11:00 04/04/17 11:00 04/04/17 11:00 04/04/17 11:00 General appearance: Present: A&O X 3, pleasant, no acute distress, answers questions appropriately Exam: Gen.: Vitals noted. No acute distress. AAOx3 HEENT: PERRL oropharynx clear, Normocephalic, atraumatic Neck: Supple. No adenopathy. Cardiac: RRR, no murmur, +S1/S2 Pulmonary: CTA bilaterally, no wheezes, rales or rhonchi, equal chest expansion Abdomen: soft, nontender, Bowel sounds noted, no guarding MSK: ROM intact, no joint swelling noted Extremities: no BLE edema, nontender calf, no cyanosis or clubbing Neuro: A&Ox3, moves all extremities, no focal deficits Psych: Appropriate mood and behavior <Darnell Garland P - Last Filed: 04/04/17 18:24> Date of Encounter: 04/04/17 - Discharge Diagnosis (1) Exacerbation of multiple sclerosis Status: Suspected (2) Restless leg syndrome Status: Chronic (3) Depression Status: Chronic Qualifiers: Depression Type: major depressive disorder Major depression recurrence: recurrent Active/Remission status: in full remission Qualified Code(s): F33.42 - Major depressive disorder, recurrent, in full remission Date of admission: 04/03/17 13:18 Primary care physician: Sussy Cruz CNP Consults: 04/04/17 07:52 Consult to Cyber Instructor [CONS] Routine Reason for SW Consult: discharge planning Hospital course: Mr. Mina is a 41 year old male - Time Spent with Patient Total time spent providing and/or coordinating discharge services: - Constitutional Vitals: Temp Pulse Resp BP Pulse Ox 98.0 F 63 16 119/76 95 04/04/17 11:00 04/04/17 11:00 04/04/17 11:00 04/04/17 11:00 04/04/17 11:00 - Attending Attestation I examined this patient and my medical decision-making was reviewed with the Resident Physician. I agree with the documented findings, disposition and treatment plan as described except to the extent set forth below.
== END 2017-04-04 20:11 | disposition home or self-care (01) | DRG 59 ==
LOC: EMEROO 16:52 → 3NENU 16:52 → 3ANU 04-03 19:28
PROVIDERS: ADMIT Family Medicine; ATTEND Internal Medicine